=== PATIENT | male | born 1985 | race Caucasian/White ===

== ENCOUNTER 2020-02-19 18:30 | Emergency (ER) | payer MEDICAID ==
[~2020-02-19] VITALS: Ht 177.8 cm; Wt 75.0 kg
[2020-02-19] MEDS ORDERED: HALOPERIDOL LACTATE 5MG/ML VIAL IM ONE (20:30)
[2020-02-19] MEDS ORDERED: LORAZEPAM 2MG/ML CPJ IM PRN (20:30)
[2020-02-19] MEDS ORDERED: DIPHENHYDRAMINE 50MG/ML VIAL IM PRN (20:30)
[2020-02-19] MEDS ORDERED: SODIUM CHLORIDE 0.9% 1,000 ML IV ONE (20:30)
[2020-02-19 21:38] LABS: HEMATOCRIT. 40.9 % (42.0-52.0); HEMOGLOBIN. 13.9 g/dL (14.0-18.0); MEAN CORPUSCULAR HEMOGLOBIN 29.3 pg (28.0-32.0); MEAN CORPUSCULAR VOLUME 85.9 fL (80.0-94.0); MEAN PLATELET VOLUME 7.1 fl (7.4-10.4); PLATELET 339 x1000/uL (130-400); RED BLOOD CELL COUNT 4.76 mill/uL (4.7-6.1); RED CELL DISTRIBUTION WIDTH 12.2 % (11.6-14.6)
[2020-02-19 21:45] LABS: CHLORIDE 107 mEq/L (98-107)
[2020-02-19 21:48] LABS: ETHANOL BLOOD < 10 mg/dL
[2020-02-19 22:01] LABS: PLATELET ESTIMATE NORMAL
[2020-02-19 22:30] LABS: CLARITY URINE CLEAR (CLEAR); COLOR URINE YELLOW (YELLOW); KETONES URINE TRACE (NEGATIVE); LEUKOCYTE ESTERASE URINE NEGATIVE (NEGATIVE); NITRITE URINE NEGATIVE (NEGATIVE); OCCULT BLOOD URINE NEGATIVE (NEGATIVE); PH URINE 5.5 (4.5-8.0); PROTEIN URINE 1+ (NEGATIVE); SPECIFIC GRAVITY URINE 1.025 (1.005-1.030)
[2020-02-19 22:50] LABS: *AMPHETAMINES SCREEN URINE PRESUMTIVE POSITIVE (NEGATIVE); *BARBITURATES SCREEN URINE NEGATIVE (NEGATIVE); *BENZODIAZEPINES SCREEN URINE PRESUMTIVE POSITIVE (NEGATIVE)
[2020-02-19 22:51] LABS: *COCAINE SCREEN URINE NEGATIVE (NEGATIVE); CANNABINOID URINE SCREEN PRESUMTIVE POSITIVE (NEGATIVE); METHADONE URINE SCREEN NEGATIVE (NEGATIVE); OPIATES URINE SCREEN NEGATIVE (NEGATIVE); PHENCYCLIDINE URINE SCREEN NEGATIVE (NEGATIVE)
[2020-02-20 02:06] VITALS: BP 110/71
== END 2020-02-20 02:07 | disposition home or self-care (01) ==
LOC: ER 18:37
DX: F15.10 Other stimulant abuse, uncomplicated (principal); F12.10 Cannabis abuse, uncomplicated; R45.1 Restlessness and agitation; R41.82 Altered mental status, unspecified; Z78.1 Physical restraint status
CPT/HCPCS: 36415; 80053; 80305; 80320; 81003; 85025; 93005; 96360; 96372; 99285; J1200; J1630; J2060; J7030; G0480

== ENCOUNTER 2020-02-22 18:49 | Emergency (ER) | payer MEDICAID ==
[~2020-02-22] VITALS: Ht 170.2 cm; Wt 68.0 kg
[2020-02-23 03:37] VITALS: BP 132/92
== END 2020-02-23 04:58 | disposition home or self-care (01) ==
LOC: ER 18:49
DX: R45.1 Restlessness and agitation (principal); F15.10 Other stimulant abuse, uncomplicated; F12.10 Cannabis abuse, uncomplicated; F16.10 Hallucinogen abuse, uncomplicated
CPT/HCPCS: 93005; 99283

== ENCOUNTER 2020-03-29 15:45 | Emergency (ER) | payer MEDICAID ==
[~2020-03-29] VITALS: Ht 177.8 cm; Wt 72.0 kg
[2020-03-29 15:45] VITALS: BP 164/94
== END 2020-03-29 16:09 | disposition home or self-care (01) ==
LOC: ER 15:45
DX: S00.212A Abrasion of left eyelid and periocular area, initial encounter (principal); R00.0 Tachycardia, unspecified; Y35.893A Legal intervention involving other specified means, suspect injured, initial encounter; Y93.89 Activity, other specified; Y92.480 Sidewalk as the place of occurrence of the external cause; F15.10 Other stimulant abuse, uncomplicated
CPT/HCPCS: 99283